=== PATIENT | female | born 1965 | race Caucasian/White ===

== ENCOUNTER 2019-08-23 16:20 | Emergency (ER) | payer OTHER ==
[2019-08-23 16:32] VITALS: TEMP 98.3; BMI 32.3
--- NOTE | 2019-08-23 16:33 | PDOC ---
Rapid Medical Evaluation Time Seen by Provider: 08/23/19 16:31 Medical Evaluation: 08/23/19 16:31 This patient had a brief physical exam by me cc:elevated blood pressure today HPI: Patient reports headache since yesterday, elevated blood pressure today. Denies chest pain dizzines, blurred vision PE: NAD unlabored breathing heart s1s2 non edematous feet orders:none This patient will proceed to main emergency room for further evaluation
--- NOTE | 2019-08-23 19:44 | PDOC ---
*Physical Exam - Vital Signs Last Vital Signs Temp Pulse Resp BP Pulse Ox 98.3 F 84 18 156/94 99 08/23/19 16:28 08/23/19 16:28 08/23/19 16:28 08/23/19 16:28 08/23/19 16:28 ED Treatment Course - LABORATORY CBC & Chemistry Diagram: 08/23/19 20:45 08/23/19 22:50 Medical Decision Making - Medical Decision Making 08/23/19 19:44 Patient seen by the advanced practice provider under my direct supervision. Ancillary testing reviewed as necessary. I agree with plan as outlined by the advanced practice provider. Discharge - Discharge Information Problems reviewed: Yes Clinical Impression/Diagnosis: Headache Qualifiers: Headache type: unspecified Headache chronicity pattern: acute headache Intractability: not intractable Qualified Code(s): R51 - Headache Condition: Improved Disposition: HOME - Follow up/Referral Referrals: Harvey Harris MD [Staff Physician] - Call tomorrow John Wynn MD [Primary Care Provider] - Call tomorrow - Patient Discharge Instructions Patient Printed Discharge Instructions: How to Monitor Your Blood Pressure at Home Additional Instructions: please follow up with neurology and pcp as soon as possible Additional Instructions: * Please call your personal physician to report your Emergency Department visit and to report your progress, if any. * If there is no improvement in symptoms in 2 days call your physician. * Return to the Emergency Department for any worsening symptoms. - Post Discharge Activity Work/Back to School Note: Back to Work
--- NOTE | 2019-08-23 20:12 | PDOC ---
History of Present Illness - General Chief Complaint: Blood Pressure Problem Stated Complaint: BP PROBLEM Time Seen by Provider: 08/23/19 16:31 History Source: Patient - History of Present Illness Initial Comments: 08/23/19 20:15 54 year old female c/o headache, left sided chest pain and blood pressure started today at 10 am. patient reports slight dizziness. denies palpitations, NVD, abdominal pain. PMHX: hypercholestremia. 08/23/19 20:20 Past History - Past Medical History Allergies/Adverse Reactions: Allergies Allergy/AdvReac Type Severity Reaction Status Date / Time No Known Allergies Allergy Verified 08/23/19 16:32 Home Medications: Ambulatory Orders Unobtainable 08/23/19 COPD: No Hypercholesterolemia: Yes - Psycho Social/Smoking Cessation Hx Smoking History: Never smoked Review of Systems - Review of Systems Able to Perform ROS?: Yes Is the patient limited Nepali proficient: No Constitutional: No: Symptoms Reported, See HPI, Chills, Diaphoresis, Fever, Loss of Appetite, Malaise, Night Sweats, Weakness, Weight Stable, Unintentional Wgt. Loss, Unexplained wgt Loss, Other Cardiac (ROS): Yes: Chest Pain *Physical Exam - Vital Signs Last Vital Signs Temp Pulse Resp BP Pulse Ox 98.3 F 84 18 156/94 99 08/23/19 16:28 08/23/19 16:28 08/23/19 16:28 08/23/19 16:28 08/23/19 16:28 - Physical Exam General Appearance: Yes: Appropriately Dressed Respiratory/Chest: positive: Lungs Clear, Normal Breath Sounds Cardiovascular: positive: Regular Rhythm, Regular Rate Gastrointestinal/Abdominal: positive: Normal Bowel Sounds, Soft Heart Score/ECG Review - History History: Slightly suspicious - Electrocardiogram EKG: Normal - Age Age: 45-65 - Risk Factors Risk Factors Heart Score: Yes Hx Hypercholesterolemia - ECG Intrepretation Rhythm: Regular Rhythm ED Treatment Course - LABORATORY CBC & Chemistry Diagram: 08/23/19 20:45 08/23/19 22:50 Medical Decision Making - Medical Decision Making A: headache; chest pain P: cbc cmp cardiac 08/23/19 23:09 CT head discussed with Dr. love. recommends outpatient follow up since unchanged from previous CT 08/23/19 23:35 Discharge - Discharge Information Problems reviewed: Yes Clinical Impression/Diagnosis: Headache Qualifiers: Headache type: unspecified Headache chronicity pattern: acute headache Intractability: not intractable Qualified Code(s): R51 - Headache Disposition: HOME - Follow up/Referral Referrals: Harvey Love MD [Staff Physician] - Call tomorrow John Wynn MD [Primary Care Provider] - Call tomorrow - Patient Discharge Instructions Patient Printed Discharge Instructions: How to Monitor Your Blood Pressure at Home Additional Instructions: please follow up with neurology and pcp as soon as possible Additional Instructions: * Please call your personal physician to report your Emergency Department visit and to report your progress, if any. * If there is no improvement in symptoms in 2 days call your physician. * Return to the Emergency Department for any worsening symptoms. - Post Discharge Activity Work/Back to School Note: Back to Work
[2019-08-23] MEDS ORDERED: ASPIRIN 81 MG CHEWABLE TABLETS PO ONE (20:17)
[2019-08-23] MEDS ORDERED: ASPIRIN 81 MG CHEWABLE TABLETS ONE (20:39)
[2019-08-23 20:55] LABS: EOS % 3.5 % (0-4.5); HEMOGLOBIN 12.5 GM/dL (10.7-15.3); MCH 29.9 pg (25.7-33.7); MCHC 33.8 g/dl (32.0-36.0); MEAN CELL VOLUME 88.5 fl (80-96); MEAN PLT VOLUME 8.3 fl (7.5-11.1); MONO % 8.4 % (3.8-10.2); NEUT % 58.1 % (42.8-82.8); PLATELET COUNT 267 K/MM3 (134-434); RBC 4.19 M/mm3 (3.60-5.2); RDW 13.2 % (11.6-15.6); WHITE BLOOD COUNT 4.8 K/mm3 (4.0-10.0)
[2019-08-23 21:08] LABS: INR 1.03 (0.83-1.09); PROTHROMBIN TIME (PATIENT) 12.1 SEC (9.7-13.0)
[2019-08-23 21:10] LABS: ACTIVATED PTT 35.4 SECONDS (25.2-36.5)
[2019-08-23 23:32] LABS: ALBUMIN 3.8 g/dl (3.4-5.0); ALK PHOS 112 U/L (45-117); ANION GAP 5 MMOL/L (8-16); BILIRUBIN,TOTAL 0.4 mg/dL (0.2-1); CALCIUM 9.4 mg/dL (8.5-10.1); CHLORIDE 107 mmol/L (98-107); CO2 28 mmol/L (21-32); GLUCOSE,RANDOM 145 mg/dL (74-106); POTASSIUM 4.5 mmol/L (3.5-5.1); SGOT/AST 31 U/L (15-37); SGPT/ALT 47 U/L (13-61); SODIUM 141 mmol/L (136-145); TOT PROT 7.8 g/dl (6.4-8.2)
[2019-08-24 00:06] VITALS: BP 150/89; PULSE 83
== END 2019-08-24 00:07 | disposition home or self-care (01) ==
LOC: JER 16:20
DX: R51 Headache (principal); I10 Essential (primary) hypertension; E78.00 Pure hypercholesterolemia, unspecified
CPT/HCPCS: 36415; 70450-TC; 71046-TC-FY; 80053; 82550; 84484; 85025; 85610; 85730; 99283-25

== ENCOUNTER 2023-03-15 16:57 | Emergency (ER) | payer OTHER ==
[2023-03-15 17:03] VITALS: BP 139/83; PULSE 91; RESP 18; TEMP 99.1; BMI 32.3
[2023-03-15 17:29] LABS: URINE APPEARANCE CLEAR; URINE BILIRUBIN NEGATIVE (NEGATIVE); URINE COLOR YELLOW; URINE GLUCOSE (UA) NEGATIVE (NEGATIVE); URINE KETONE NEGATIVE (NEGATIVE); URINE LEUK ESTERASE NEGATIVE (NEGATIVE); URINE NITRITE NEGATIVE (NEGATIVE); URINE PROTEIN NEGATIVE (NEGATIVE); URINE UROBILINOGEN 0.2 mg/dL (0.2-1.0)
== END 2023-03-15 19:12 | disposition home or self-care (01) ==
LOC: JERFT 16:57
DX: R30.9 Painful micturition, unspecified (principal); M54.50 Low back pain, unspecified; R10.2 Pelvic and perineal pain
CPT/HCPCS: 76856-TC; 81003; 87086; 99284-25

== ENCOUNTER 2023-12-22 18:27 | Inpatient (IN) | payer OTHER ==
[2023-12-22 18:36] VITALS: BMI 33.4
[2023-12-22] MEDS ORDERED: ACETAMINOPHEN INJECTION 100 ML IVPB ONE (19:24)
[2023-12-22 19:30] LABS: PH,URINE >= 9.0 (5.0-8.0); URINE APPEARANCE CLEAR; URINE BILIRUBIN NEGATIVE (NEGATIVE); URINE COLOR YELLOW; URINE GLUCOSE (UA) NEGATIVE (NEGATIVE); URINE KETONE NEGATIVE (NEGATIVE); URINE LEUK ESTERASE NEGATIVE (NEGATIVE); URINE NITRITE NEGATIVE (NEGATIVE); URINE PROTEIN NEGATIVE (NEGATIVE); URINE UROBILINOGEN 0.2 mg/dL (0.2-1.0)
[2023-12-22 19:32] LABS: BASO % 0.3 % (0-2.0); EOS % 0.2 % (0-4.5); HEMATOCRIT 36.6 % (32.4-45.2); HEMOGLOBIN 12.4 GM/dL (10.7-15.3); LYMPH % 6.9 % (8-40); MCH 30.3 pg (25.7-33.7); MCHC 33.9 g/dl (32.0-36.0); MEAN CELL VOLUME 89.2 fl (80-96); MEAN PLT VOLUME 8.5 fl (7.5-11.1); MONO % 3.3 % (3.8-10.2); NEUT % 89.3 % (42.8-82.8); PLATELET COUNT 270 10^3/uL (134-434); RDW 13.5 % (11.6-15.6); WHITE BLOOD COUNT 12.9 K/mm3 (4.0-10.0)
[2023-12-22 19:35] LABS: VENOUS O2 SATURATION 90.4 % (70-80); VENOUS PCO2 36.9 mmHg (38-52); VENOUS PH 7.43 (7.310-7.410)
[2023-12-22] MEDS: ACETAMINOPHEN 1000 MG/100 ML BAG IVPB ONE (19:36)
[2023-12-22 19:37] LABS: INR 1.05 (0.83-1.09); PROTHROMBIN TIME (PATIENT) 11.9 SEC (9.7-13.0)
[2023-12-22 19:40] LABS: ACTIVATED PTT 28.8 SECONDS (25.2-36.5)
[2023-12-22] MEDS ORDERED: PIPERACILLIN/TAZOB 4.5 GM 4.5 GM/100 ML BAG IVPB ONE (19:40)
[2023-12-22] MEDS: PIPERACILLIN/TAZOB 4.5 GM 4.5 GM in DEXTROSE 5%-WATER 100 ML IVPB ONE (19:48)
[2023-12-22 19:49] LABS: POTASSIUM 4.1 mmol/L (3.5-5.1)
[2023-12-22 19:51] LABS: CALCIUM 9.1 mg/dL (8.5-10.1)
[2023-12-22 19:52] LABS: ALBUMIN 3.8 g/dl (3.4-5.0); BLOOD UREA NITROGEN 12.8 mg/dL (7-18)
[2023-12-22 19:57] LABS: BILIRUBIN,TOTAL 0.5 mg/dL (0.2-1); TOT PROT 7.4 g/dl (6.4-8.2)
[2023-12-22] MEDS: SODIUM CHLORIDE 0.9% 1000 ML INFUS.BAG IV ONE (21:57)
[2023-12-22] MEDS ORDERED: ONDANSETRON 4 MG/2 ML VIAL ONE (22:50)
[2023-12-22] MEDS: morphine CARPU-JECT 2 MG/1 ML DISP.SYRIN IVPUSH ONE (23:00)
[2023-12-22] MEDS: LACTATED RINGERS SOLUTION 1000 ML INFUS.BAG IV ONE (23:00)
[2023-12-22] MEDS: ONDANSETRON 4 MG/2 ML VIAL IVPUSH ONE (23:01)
[2023-12-23] MEDS: DEXTROSE 5%-0.45% SALINE 1,000 ML IV SCH (00:42)
[2023-12-23] MEDS: PIPERACILLIN/TAZOB 4.5 GM 4.5 GM in DEXTROSE 5%-WATER 100 ML IVPB SCH ×2 (02:33→18:37)
[2023-12-23 08:46] LABS: BASO % 0.3 % (0-2.0); EOS % 0.3 % (0-4.5); HEMATOCRIT 32.3 % (32.4-45.2); HEMOGLOBIN 11.2 GM/dL (10.7-15.3); LYMPH % 10.5 % (8-40); MCH 30.5 pg (25.7-33.7); MCHC 34.6 g/dl (32.0-36.0); MEAN CELL VOLUME 88.3 fl (80-96); MEAN PLT VOLUME 8.3 fl (7.5-11.1); MONO % 3.4 % (3.8-10.2); NEUT % 85.5 % (42.8-82.8); PLATELET COUNT 244 10^3/uL (134-434); RBC 3.66 M/mm3 (3.60-5.2); RDW 13.8 % (11.6-15.6); WHITE BLOOD COUNT 11.3 K/mm3 (4.0-10.0)
[2023-12-23] MEDS: HEPARIN NA (PORCINE) 5,000 UNITS/ML 1ML VIAL SQ SCH (09:59)
[2023-12-23] MEDS: ACETAMINOPHEN 1000 MG/100 ML BAG IVPB PRN (10:02)
[2023-12-23 10:12] LABS: BLOOD UREA NITROGEN 10.6 mg/dL (7-18); CALCIUM 8.4 mg/dL (8.5-10.1); CREATININE 0.9 mg/dL (0.55-1.3)
[2023-12-23] MEDS ORDERED: PIPERACILLIN/TAZOBACTAM 4.5 GM VIAL IVPB ONE (18:38)
[2023-12-24] MEDS ORDERED: PIPERACILLIN/TAZOB 4.5 GM 4.5 GM in DEXTROSE 5%-WATER 100 ML IVPB SCH (03:00)
[2023-12-24 09:33] LABS: HEMATOCRIT 33.2 % (32.4-45.2); HEMOGLOBIN 11.5 GM/dL (10.7-15.3); MCH 30.6 pg (25.7-33.7); MCHC 34.6 g/dl (32.0-36.0); MEAN CELL VOLUME 88.4 fl (80-96); MEAN PLT VOLUME 8.1 fl (7.5-11.1); PLATELET COUNT 250 10^3/uL (134-434); RBC 3.76 M/mm3 (3.60-5.2)
[2023-12-24 10:08] LABS: ANISOCYTOSIS 0; MACROCYTOSIS 0; POTASSIUM 3.9 mmol/L (3.5-5.1)
[2023-12-24 10:14] LABS: CREATININE 0.9 mg/dL (0.55-1.3)
[2023-12-24 10:16] LABS: BILIRUBIN,TOTAL 0.8 mg/dL (0.2-1); TOT PROT 6.5 g/dl (6.4-8.2)
[2023-12-24 10:17] LABS: BLOOD UREA NITROGEN 7.2 mg/dL (7-18)
[2023-12-24 10:18] LABS: CALCIUM 8.6 mg/dL (8.5-10.1)
[2023-12-24] MEDS: FAMOTIDINE 20 MG/50 ML IVPB 20 MG/50 ML MG IVPB SCH (21:14)
[2023-12-25 07:51] LABS: HEMATOCRIT 32.9 % (32.4-45.2); MCH 29.6 pg (25.7-33.7); MCHC 33.6 g/dl (32.0-36.0); MEAN CELL VOLUME 88.2 fl (80-96); MEAN PLT VOLUME 7.9 fl (7.5-11.1); PLATELET COUNT 271 10^3/uL (134-434); RBC 3.73 M/mm3 (3.60-5.2); RDW 13.5 % (11.6-15.6); WHITE BLOOD COUNT 7.3 K/mm3 (4.0-10.0)
[2023-12-26] MEDS: diphenhydrAMINE HCL 25 MG CAPSULE (FP) PO ONE (10:13)
[2023-12-26] MEDS: ONDANSETRON 4 MG/2 ML VIAL IVPUSH PRN (15:44)
[2023-12-26] MEDS: SIMETHICONE 80 MG TAB.CHEW (FP) PO PRN (15:46)
[2023-12-27] MEDS: diphenhydrAMINE HCL 25 MG CAPSULE (FP) PO ONE ×2 (04:16→20:40)
[2023-12-28 09:42] LABS: BASO % 0.3 % (0-2.0); EOS % 9.2 % (0-4.5); HEMATOCRIT 34.6 % (32.4-45.2); HEMOGLOBIN 11.9 GM/dL (10.7-15.3); LYMPH % 9.4 % (8-40); MCH 30.5 pg (25.7-33.7); MCHC 34.5 g/dl (32.0-36.0); MEAN CELL VOLUME 88.3 fl (80-96); MEAN PLT VOLUME 7.5 fl (7.5-11.1); MONO % 8.7 % (3.8-10.2); NEUT % 72.4 % (42.8-82.8); PLATELET COUNT 361 10^3/uL (134-434); RBC 3.92 M/mm3 (3.60-5.2); RDW 13.4 % (11.6-15.6); WHITE BLOOD COUNT 7.4 K/mm3 (4.0-10.0)
[2023-12-28 10:15] LABS: POTASSIUM 3.6 mmol/L (3.5-5.1)
[2023-12-28 10:21] LABS: ALBUMIN 2.8 g/dl (3.4-5.0); BLOOD UREA NITROGEN 4.6 mg/dL (7-18); CALCIUM 8.6 mg/dL (8.5-10.1)
[2023-12-28 10:24] LABS: CREATININE 0.8 mg/dL (0.55-1.3)
[2023-12-28 10:25] LABS: TOT PROT 6.4 g/dl (6.4-8.2)
[2023-12-28 10:26] LABS: BILIRUBIN,TOTAL 0.3 mg/dL (0.2-1)
[2023-12-30 08:19] LABS: INR 1.24 (0.83-1.09); PROTHROMBIN TIME (PATIENT) 14.2 SEC (9.7-13.0)
[2023-12-31 10:58] LABS: BASO % 0.4 % (0-2.0); EOS % 7.2 % (0-4.5); HEMOGLOBIN 11.7 GM/dL (10.7-15.3); LYMPH % 16.2 % (8-40); MCH 30.2 pg (25.7-33.7); MCHC 34.4 g/dl (32.0-36.0); MEAN CELL VOLUME 87.9 fl (80-96); MEAN PLT VOLUME 7.1 fl (7.5-11.1); MONO % 8.1 % (3.8-10.2); NEUT % 68.1 % (42.8-82.8); PLATELET COUNT 456 10^3/uL (134-434); RBC 3.87 M/mm3 (3.60-5.2); RDW 14.1 % (11.6-15.6); WHITE BLOOD COUNT 7.1 K/mm3 (4.0-10.0)
[2023-12-31 11:13] LABS: POTASSIUM 3.7 mmol/L (3.5-5.1)
[2023-12-31 11:14] LABS: CALCIUM 8.7 mg/dL (8.5-10.1)
[2023-12-31 11:15] LABS: BLOOD UREA NITROGEN 4.5 mg/dL (7-18)
[2023-12-31 11:18] LABS: CREATININE 0.6 mg/dL (0.55-1.3)
[2024-01-01] MEDS ORDERED: FENTANYL CITRATE/PF 50 MCG/ML VIAL ONE (11:19)
[2024-01-01] MEDS: FENTANYL CITRATE/PF 50 MCG/ML VIAL IVPUSH SCH (12:12)
[2024-01-01] MEDS: FENTANYL CITRATE/PF 50 MCG/ML VIAL IVPUSH PRN (12:18)
[2024-01-01] MEDS: FLUCONAZOLE 150 MG TABLET PO ONE (17:43)
[2024-01-01] MEDS: NYSTATIN 100,000 UNIT/GM TOPICAL CREAM 15 GM TUBE TP SCH (21:40)
[2024-01-01] MEDS: MICONAZOLE NITRATE 2% VAGINAL CREAM 45 GM TUBE VG SCH (21:40)
[2024-01-02] MEDS: HEPARIN NA (PORCINE) 5,000 UNITS/ML 1ML VIAL SQ SCH (21:35)
[2024-01-03 09:06] LABS: HEMATOCRIT 34.7 % (32.4-45.2); MCH 30.6 pg (25.7-33.7); MCHC 34.7 g/dl (32.0-36.0); MEAN CELL VOLUME 88.3 fl (80-96); MEAN PLT VOLUME 6.7 fl (7.5-11.1); PLATELET COUNT 533 10^3/uL (134-434); RBC 3.93 M/mm3 (3.60-5.2); RDW 14.1 % (11.6-15.6); WHITE BLOOD COUNT 5.5 K/mm3 (4.0-10.0)
[2024-01-03 09:26] LABS: POTASSIUM 3.5 mmol/L (3.5-5.1)
[2024-01-03 09:28] LABS: CALCIUM 8.8 mg/dL (8.5-10.1)
[2024-01-03 09:29] LABS: ALBUMIN 2.9 g/dl (3.4-5.0); BLOOD UREA NITROGEN 8.7 mg/dL (7-18)
[2024-01-03 09:32] LABS: CREATININE 0.8 mg/dL (0.55-1.3)
[2024-01-03 09:34] LABS: BILIRUBIN,TOTAL 0.4 mg/dL (0.2-1); TOT PROT 6.8 g/dl (6.4-8.2)
[2024-01-04 05:40] VITALS: RESP 18
[2024-01-04] MEDS: FLUCONAZOLE 100 MG TABLET (UD) PO SCH (13:29)
[2024-01-05 10:24] LABS: HEMATOCRIT 33.7 % (32.4-45.2); HEMOGLOBIN 11.5 GM/dL (10.7-15.3); MCH 30.4 pg (25.7-33.7); MCHC 34.2 g/dl (32.0-36.0); MEAN PLT VOLUME 6.9 fl (7.5-11.1); PLATELET COUNT 524 10^3/uL (134-434); RBC 3.79 M/mm3 (3.60-5.2); RDW 14.2 % (11.6-15.6); WHITE BLOOD COUNT 4.4 K/mm3 (4.0-10.0)
[2024-01-05 10:40] LABS: POTASSIUM 4.1 mmol/L (3.5-5.1)
[2024-01-05 10:42] LABS: CALCIUM 8.9 mg/dL (8.5-10.1)
[2024-01-05 10:43] LABS: ALBUMIN 2.9 g/dl (3.4-5.0); BLOOD UREA NITROGEN 7.8 mg/dL (7-18); MAGNESIUM 2.2 mg/dL (1.8-2.4)
[2024-01-05 10:46] LABS: CREATININE 0.8 mg/dL (0.55-1.3)
[2024-01-05 10:48] LABS: BILIRUBIN,TOTAL 0.6 mg/dL (0.2-1); TOT PROT 6.9 g/dl (6.4-8.2)
[2024-01-06 14:54] VITALS: BP 123/69; PULSE 89; TEMP 99.6
== END 2024-01-06 16:00 | disposition home or self-care (01) | DRG 244 ==
LOC: JER 18:27 → JERBED 22:57 → J6S 12-23 00:50
PROVIDERS: ADMIT Internal Medicine; ATTEND Family Medicine
PROC: 0W9G30Z Drainage of Peritoneal Cavity with Drainage Device, Percutaneous Approach (ICD-10-PCS; principal; 2024-01-01)
DX: K57.20 Diverticulitis of large intestine with perforation and abscess without bleeding (principal); E78.5 Hyperlipidemia, unspecified; J98.11 Atelectasis
CPT/HCPCS: 0241U-QW; 36415; 49406; 71046-TC-FY; 71250-TC; 74018-TC-FY; 74176-TC; 74177-TC; 80048; 80053; 81003; 82803; 82962; 83605; 83735; 84484; 85025; 85027; 85610; 85730; 86140; 87040; 87070; 87075; 87077; 87086; 87106; 87116; 87186; 87205; 87206; 93005; 93010; 99285-25; J0131; J1644; Q9967

== ENCOUNTER 2024-01-27 16:11 | Emergency (ER) | payer OTHER ==
[2024-01-27 16:19] VITALS: RESP 18; BMI 29.2
[2024-01-27 18:25] LABS: BASO % 0.5 % (0-2.0); EOS % 4.7 % (0-4.5); HEMATOCRIT 37.7 % (32.4-45.2); HEMOGLOBIN 12.4 GM/dL (10.7-15.3); LYMPH % 34.1 % (8-40); MCH 29.6 pg (25.7-33.7); MCHC 32.8 g/dl (32.0-36.0); MEAN CELL VOLUME 90.4 fl (80-96); MEAN PLT VOLUME 7.9 fl (7.5-11.1); MONO % 10.2 % (3.8-10.2); NEUT % 50.5 % (42.8-82.8); PLATELET COUNT 272 10^3/uL (134-434); RBC 4.17 M/mm3 (3.60-5.2); RDW 14.7 % (11.6-15.6); WHITE BLOOD COUNT 4.3 K/mm3 (4.0-10.0)
[2024-01-27 18:47] LABS: POTASSIUM 4.3 mmol/L (3.5-5.1)
[2024-01-27 18:49] LABS: ALBUMIN 3.6 g/dl (3.4-5.0); BLOOD UREA NITROGEN 9.4 mg/dL (7-18); CALCIUM 9.2 mg/dL (8.5-10.1)
[2024-01-27 18:52] LABS: CREATININE 0.8 mg/dL (0.55-1.3)
[2024-01-27 18:54] LABS: BILIRUBIN,TOTAL 0.2 mg/dL (0.2-1); TOT PROT 7.3 g/dl (6.4-8.2)
[2024-01-27 20:18] VITALS: BP 111/74; PULSE 78; TEMP 98.2
== END 2024-01-27 20:17 | disposition home or self-care (01) ==
LOC: JER 16:11
DX: K57.20 Diverticulitis of large intestine with perforation and abscess without bleeding (principal); R10.32 Left lower quadrant pain
CPT/HCPCS: 36415; 74177-TC; 80053; 85025; 99285-25; Q9967

== ENCOUNTER 2024-02-22 05:56 | Inpatient (IN) | payer OTHER ==
[2024-02-19 12:57] VITALS: BMI 29.7
[2024-02-22] MEDS ORDERED: BUPIVACAINE HCL/PF 0.25% (2.5MG/ML) 10 ML VIAL ONE (07:18)
[2024-02-22] MEDS ORDERED: INDOCYANINE GREEN 25 MG/10 ML VIAL IVPUSH ONE (07:18)
[2024-02-22] MEDS: ACETAMINOPHEN 500 MG TABLET (FP) PO ONE (07:25)
[2024-02-22] MEDS: GABAPENTIN 300 MG CAPSULE PO ONE (07:25)
[2024-02-22] MEDS ORDERED: ROCURONIUM BROMIDE 50 MG/5 ML SYRINGE ONE ×2 (07:51→09:25)
[2024-02-22] MEDS ORDERED: PROPOFOL 40 ML ONE (07:51)
[2024-02-22] MEDS ORDERED: SUCCINYLCHOLINE CHLORIDE 200 MG/10 ML SYRINGE ONE (07:51)
[2024-02-22] MEDS ORDERED: MIDAZOLAM HCL 2 MG/2 ML SINGLE DOSE VIAL ONE (07:51)
[2024-02-22] MEDS: cefOXitin SODIUM 2 GM VIAL (RESTRICTED TO ID) IVPB ONE ×2 (08:35→16:12)
[2024-02-22] MEDS ORDERED: HYDROmorphone HCl 2 MG/ML VIAL ONE (08:47)
[2024-02-22] MEDS ORDERED: DEXMEDETOMIDINE HCL 200 MCG/2 ML IVPB ONE (09:02)
[2024-02-22] MEDS: BUPIVACAINE HCL/PF 0.25% (2.5MG/ML) 10 ML VIAL IJ ONE (12:36)
[2024-02-22] MEDS: ACETAMINOPHEN 1000 MG/100 ML BAG IVPB SCH (14:17)
[2024-02-22] MEDS: LACTATED RINGERS SOLUTION 1,000 ML IV SCH (14:28)
[2024-02-22] MEDS: GABAPENTIN 300 MG CAPSULE PO SCH (16:12)
[2024-02-22] MEDS: oxyCODONE HCL 5 MG TABLET PO PRN (17:57)
[2024-02-22] MEDS: SCOPOLAMINE HYDROBROMIDE 1 PATCH PATCH.TD72 TD ONE (17:59)
[2024-02-22] MEDS ORDERED: CEFAZOLIN 2 GM in DEXTROSE 5%-WATER 100 ML IVPB SCH (18:00)
[2024-02-22] MEDS: ONDANSETRON 4 MG/2 ML VIAL IVPUSH PRN (18:28)
[2024-02-22] MEDS: CEFAZOLIN SODIUM 2 GM in DEXTROSE 5%-WATER 100 ML IVPB SCH (21:21)
[2024-02-23] MEDS: ONDANSETRON 4 MG/2 ML VIAL IVPUSH ONE (01:12)
[2024-02-23] MEDS: morphine SULFATE 4 MG/ML VIAL IVPUSH ONE (06:41)
[2024-02-23 08:45] LABS: BASO % 0.3 % (0-2.0); HEMATOCRIT 35.2 % (32.4-45.2); LYMPH % 7.9 % (8-40); MCH 30.3 pg (25.7-33.7); MEAN CELL VOLUME 89.2 fl (80-96); MEAN PLT VOLUME 8.7 fl (7.5-11.1); MONO % 6.4 % (3.8-10.2); NEUT % 85.4 % (42.8-82.8); PLATELET COUNT 237 10^3/uL (134-434); RBC 3.95 M/mm3 (3.60-5.2); RDW 14.3 % (11.6-15.6); WHITE BLOOD COUNT 11.7 K/mm3 (4.0-10.0)
[2024-02-23 09:03] LABS: POTASSIUM 3.8 mmol/L (3.5-5.1)
[2024-02-23 09:04] LABS: CALCIUM 8.7 mg/dL (8.5-10.1)
[2024-02-23 09:05] LABS: BLOOD UREA NITROGEN 7.9 mg/dL (7-18)
[2024-02-23 09:08] LABS: CREATININE 0.7 mg/dL (0.55-1.3)
[2024-02-23] MEDS: ENOXAPARIN NA (PORCINE) 40 MG/0.4 ML DISP.SYRIN SQ SCH (09:36)
[2024-02-23] MEDS: PANTOPRAZOLE 20 MG TABLET PO SCH (09:36)
[2024-02-23] MEDS: BACLOFEN 10 MG TABLET (FP) PO PRN (14:54)
[2024-02-23] MEDS: ACETAMINOPHEN 500 MG TABLET (FP) PO SCH (17:18)
[2024-02-23] MEDS: IBUPROFEN 600 MG TABLET (FP) PO SCH (17:18)
[2024-02-24 09:04] LABS: HEMATOCRIT 34.2 % (32.4-45.2); HEMOGLOBIN 11.6 GM/dL (10.7-15.3); MCH 30.7 pg (25.7-33.7); MCHC 33.9 g/dl (32.0-36.0); MEAN CELL VOLUME 90.4 fl (80-96); MEAN PLT VOLUME 8.8 fl (7.5-11.1); PLATELET COUNT 226 10^3/uL (134-434); RBC 3.78 M/mm3 (3.60-5.2); RDW 14.9 % (11.6-15.6); WHITE BLOOD COUNT 8.2 K/mm3 (4.0-10.0)
[2024-02-24 09:11] LABS: POTASSIUM 4.4 mmol/L (3.5-5.1)
[2024-02-24 09:16] LABS: ALBUMIN 2.8 g/dl (3.4-5.0); CALCIUM 8.6 mg/dL (8.5-10.1)
[2024-02-24 09:19] LABS: CREATININE 1.4 mg/dL (0.55-1.3)
[2024-02-24 09:20] LABS: BILIRUBIN,TOTAL 0.7 mg/dL (0.2-1); TOT PROT 5.8 g/dl (6.4-8.2)
[2024-02-24 15:21] VITALS: RESP 18
[2024-02-25 07:25] LABS: HEMATOCRIT 30.2 % (32.4-45.2); HEMOGLOBIN 10.4 GM/dL (10.7-15.3); MCH 31.2 pg (25.7-33.7); MCHC 34.5 g/dl (32.0-36.0); MEAN CELL VOLUME 90.6 fl (80-96); MEAN PLT VOLUME 8.5 fl (7.5-11.1); PLATELET COUNT 219 10^3/uL (134-434); RBC 3.34 M/mm3 (3.60-5.2); RDW 14.7 % (11.6-15.6)
[2024-02-25 07:47] LABS: POTASSIUM 3.8 mmol/L (3.5-5.1)
[2024-02-25 07:57] LABS: CALCIUM 8.1 mg/dL (8.5-10.1)
[2024-02-25 07:58] LABS: BLOOD UREA NITROGEN 14.4 mg/dL (7-18)
[2024-02-25 08:01] LABS: CREATININE 1.3 mg/dL (0.55-1.3)
[2024-02-25] MEDS ORDERED: DOCUSATE SODIUM 100 MG CAPSULE (FP) PO PRN (10:26)
[2024-02-26 09:10] LABS: BASO % 0.5 % (0-2.0); EOS % 9.9 % (0-4.5); HEMATOCRIT 31.9 % (32.4-45.2); HEMOGLOBIN 10.7 GM/dL (10.7-15.3); LYMPH % 19.5 % (8-40); MCH 30.3 pg (25.7-33.7); MCHC 33.7 g/dl (32.0-36.0); MEAN PLT VOLUME 8.2 fl (7.5-11.1); MONO % 7.7 % (3.8-10.2); NEUT % 62.4 % (42.8-82.8); PLATELET COUNT 273 10^3/uL (134-434); RBC 3.54 M/mm3 (3.60-5.2); RDW 14.8 % (11.6-15.6); WHITE BLOOD COUNT 4.5 K/mm3 (4.0-10.0)
[2024-02-26 09:26] LABS: POTASSIUM 4.4 mmol/L (3.5-5.1)
[2024-02-26 09:30] LABS: CALCIUM 8.4 mg/dL (8.5-10.1)
[2024-02-26 09:31] LABS: ALBUMIN 2.8 g/dl (3.4-5.0); BLOOD UREA NITROGEN 14.1 mg/dL (7-18)
[2024-02-26 09:34] LABS: CREATININE 1.2 mg/dL (0.55-1.3)
[2024-02-26 09:35] LABS: BILIRUBIN,TOTAL 0.7 mg/dL (0.2-1)
[2024-02-26 09:56] LABS: ERYTHROCYTE SEDIMENTATION RATE 53 mm/hr (0-30)
[2024-02-26 15:49] VITALS: BP 136/79; PULSE 86; TEMP 98.6
== END 2024-02-26 17:50 | disposition home or self-care (01) | DRG 221 ==
LOC: J2C 05:56 → J8W 13:49 → J2C 13:50 → J8W 16:17
PROVIDERS: ADMIT Surgery; ATTEND Family Medicine
PROC: 0T788DZ Dilation of Bilateral Ureters with Intraluminal Device, Via Natural or Artificial Opening Endoscopic (ICD-10-PCS; 2024-02-22)
PROC: 0DTN4ZZ Resection of Sigmoid Colon, Percutaneous Endoscopic Approach (ICD-10-PCS; principal; 2024-02-22 08:00)
PROC: 8E0W4CZ Robotic Assisted Procedure of Trunk Region, Percutaneous Endoscopic Approach (ICD-10-PCS; 2024-02-22 08:00)
DX: K57.20 Diverticulitis of large intestine with perforation and abscess without bleeding (principal)
CPT/HCPCS: 36415; 80048; 80053; 85025; 85027; 85651; 86140; 86850; 86900; 86901; 88307-TC; 94760; 97116-GP; 97161-GP; J0131; J0475